=== PATIENT | male | born 1965 | race Two or more races ===

== ENCOUNTER 2018-07-31 09:51 | Day surgery (SDC) | payer OTHER ==
[~2018-07-31] VITALS: Ht 162.6 cm; Wt 94.7 kg
[~2018-07-31 09:51] MED LIST: ACYC400T2 PO; IBUP-1542 PO; OMEP40CA3; PRED20TA PO; TRAM50TA2 PO
[2018-07-31 11:19] VITALS: Ht 162.6 cm; Wt 94.7 kg
[2018-07-31] MEDS ORDERED: LOSA100T8 PO (11:24)
[2018-07-31] MEDS ORDERED: FLUT1AER INHALATION (11:24)
[2018-07-31] MEDS ORDERED: ALBU18HF INHALATION (11:24)
[2018-07-31 11:48] VITALS: BP 115/72; PULSE 68; RESP 16
[2018-07-31] MEDS ORDERED: PROPOFOL 40 ML ONE (11:49)
== END 2018-07-31 13:44 | disposition home or self-care (01) ==
LOC: GIL 09:51
PROVIDERS: ATTEND Internal Medicine Gastroenterology
DX: K92.1 Melena (principal); D12.5 Benign neoplasm of sigmoid colon; K64.8 Other hemorrhoids; K29.60 Other gastritis without bleeding
CPT/HCPCS: 43239; 45380; 88305; Z7610